=== PATIENT | female | born 1945 | race Caucasian/White ===

== ENCOUNTER 2016-08-13 16:56 | Emergency (ER) | payer BC, MEDICARE ==
[~2016-08-13] VITALS: Ht 160 cm; Wt 113.0 kg
[~2016-08-13 16:56] MED LIST: ALPR0.5T PO; ASPI-727 PO; ATOR40TA21 PO; CLOP75TA4 PO; IND20 PO; LOSA100T47 PO; LYR75 PO; MECL-77 PO; METF500T4 PO; MOEX15TA PO; TRAM50TA2 PO; TRIA1CAP70 PO
[2016-08-13 16:57] VITALS: Ht 160 cm; Wt 113.0 kg
[2016-08-13] MEDS ORDERED: ALPR0.5T6 PO (18:18)
[2016-08-13] MEDS ORDERED: HYDR-3672 PO (18:18)
[2016-08-13] MEDS ORDERED: ASPI-664 PO (18:19)
[2016-08-13] MEDS ORDERED: ATOR40TA68 PO (18:19)
[2016-08-13] MEDS ORDERED: MECL-77 PO (18:20)
[2016-08-13] MEDS ORDERED: CLOP75TA4 PO (18:20)
[2016-08-13] MEDS ORDERED: METF500T4 PO (18:21)
[2016-08-13 18:22] LABS: ADD SCAN DIFF NO
[2016-08-13] MEDS ORDERED: PROP20TA4 PO (18:22)
[2016-08-13] MEDS ORDERED: SERT-165 PO (18:23)
[2016-08-13] MEDS ORDERED: MAXZ25 PO (18:23)
[2016-08-13] MEDS ORDERED: CELE200C PO (18:24)
[2016-08-13 18:25] LABS: HEMOGLOBIN 12.3 g/dl (12.0-16.0)
[2016-08-13] MEDS ORDERED: AMLO5TAB4 PO (18:25)
[2016-08-13 18:31] LABS: HEMATOCRIT 36.2 % (37.0-47.0); MEAN CORPUSCULAR HEMOGLOBIN 28.7 pg (29.0-33.0); MEAN CORPUSCULAR VOLUME 84.4 fl (82.0-101.0); MEAN PLATELET VOLUME 11.6 fl (7.4-10.4); PLATELET COUNT 260 10^3/UL (140-415); RED BLOOD COUNT 4.29 10^6/ul (4.20-5.40); RED CELL DISTRIBUTION WIDTH 12.8 % (11.5-14.5); WHITE BLOOD COUNT 7.6 10^3/ul (4.8-10.8)
--- NOTE | 2016-08-13 18:33 | RADRPT ---
PROCEDURE: Chest x-ray CLINICAL INDICATION: Chest pain TECHNIQUE: Chest single view COMPARISON: None FINDINGS: The heart is normal in size. The pulmonary vessels are normal in caliber. The lungs are clear. Th e costophrenic angles are sharp. The visualized bony thorax is unremarkable. IMPRESSION: No acute cardiopulmonary disease. RPTAT: HH .Bruce Blunt MD, Date Time Electronically viewed and signed by .Bruce Blunt MD, MD on 08/13/2016 18:33 .W/
[2016-08-13 18:53] LABS: ALANINE AMINOTRANSFERASE 32 IU/L (13-69); ALBUMIN 4.9 g/dl (3.3-4.9); ALBUMIN/GLOBULIN RATIO 1.58; ALKALINE PHOSPHATASE 98 IU/L (42-121); ANION GAP 14 (8-16); ASPARTATE AMINO TRANSFERASE 24 IU/L (15-46); BILIRUBIN,INDIRECT 0.2 mg/dl (0-1.1); BILIRUBIN,TOTAL 0.2 mg/dl (0.2-1.3); BLOOD UREA NITROGEN 28 mg/dl (7-20); CARBON DIOXIDE 31 mmol/L (21-31); CHLORIDE 100 mmol/L (97-110); CREATININE 1.27 mg/dl (0.44-1.00); GLUCOSE 112 mg/dl (70-220); POTASSIUM 3.8 mmol/L (3.5-5.1); SODIUM 141 mmol/L (135-144)
[2016-08-13 19:04] LABS: B-TYPE NATRIURETIC PEPTIDE 294 PG/ML (0-125)
[2016-08-13 19:15] LABS: TROPONIN-I < 0.012 ng/ml (0.00-0.12)
[2016-08-13 19:34] LABS: EOSINOPHILS # 0.1 10^3/ul (0.0-0.5); LYMPHOCYTES # 2.4 10^3/ul (0.8-2.9); MONOCYTE # 0.1 10^3/ul (0.3-0.9); NEUTROPHIL # 4.7 10^3/ul (1.6-7.5)
--- NOTE | 2016-08-13 19:53 | ERA ---
ER Documentation Chief Complaint Date/Time DATE: 08/13/16 TIME: 19:48 Chief Complaint LEFT SHOULDER PAIin SINCE YESTERDAY DENIES INJURY HPI This is a 70-year-old female who is complaining of left shoulder pain since yesterday off and on. The son is here and says that she lives with him and he has to pull her by her arms in order to get her out of bed or to roll her over in bed. She said that she has been gradually getting more weak and having very difficult time ambulating with several near falls. He says he has seen doctors and no one knows why she is so weak. The patient says her left shoulder hurts when she moves it sometimes. The son brought her here because she was walking to the bathroom and complained of left shoulder pain she was grossly short of breath. Symptoms lasted for about 5 minutes and went away. ROS All systems reviewed and are negative except as per history of present illness. Medications Home Meds Reported Medications Amlodipine Besylate* (Norvasc*) 5 Mg Tablet, 5 MG PO DAILY, TAB 08/13/16 Celecoxib* (Celebrex*) 200 Mg Capsule, 200 MG PO DAILY, CAP 08/13/16 Sertraline Hcl* (Sertraline Hcl*) 100 Mg Tablet, 100 MG PO DAILY, #30 TAB 08/13/16 Triamterene/Hctz* (Maxzide (37.5-25)*) 1 Each Tablet, 1 EACH PO DAILY, #30 TAB 08/13/16 Propranolol Hcl* (Propranolol Hcl*) 20 Mg Tablet, 20 MG PO BID, TAB 08/13/16 Metformin Hcl* (Metformin Hcl*) 500 Mg Tablet, 500 MG PO WITH BREAKFAST DINNE, # 60 TAB 08/13/16 Meclizine Hcl* (Meclizine Hcl*) 25 Mg Tablet, 25 MG PO BID Y for DIZZINESS, TAB 08/13/16 Clopidogrel Bisulfate* (Clopidogrel Bisulfate*) 75 Mg Tablet, 75 MG PO DAILY, # 30 TAB 08/13/16 Atorvastatin* (Atorvastatin*) 40 Mg Tablet, 40 MG PO QHS, #30 TAB 08/13/16 Aspirin* (Aspirin* EC) 81 Mg Tablet.dr, 81 MG PO DAILY, TAB 08/13/16 Alprazolam* (Alprazolam*) 0.5 Mg Tablet, 0.5 MG PO BID Y for ANXIETY, TAB 08/13/16 Hydralazine Hcl* (Hydralazine Hcl*) 50 Mg Tab, 50 MG PO TID, #90 TAB 08/13/16 Discontinued Reported Medications Pregabalin* (Lyrica*) 75 Mg Capsule, PO DAILY 05/08/12 Meclizine Hcl* (Meclizine Hcl*) 25 Mg Tablet, PO Q8 05/08/12 Tramadol HCl (Tramadol HCl) 50 Mg Tablet, PO BID 05/08/12 Atorvastatin (Lipitor) 40 Mg Tablet, 40 MG PO DAILY 04/08/12 Clopidogrel Bisulfate* (Clopidogrel Bisulfate*) 75 Mg Tablet, 75 MG PO DAILY 04/08/12 Alprazolam* (Xanax*) 0.5 Mg Tab, 0.5 MG PO BID 04/08/12 Triamterene/Hydrochlorothiazid (Triamterene-Hctz 37.5-25 Mg Cp) 1 Cap Capsule, 1 CAP PO DAILY 04/08/12 Propranolol Hcl* (Inderal*) 20 Mg Tab, 20 MG PO BID 04/08/12 Aspirin (Adult Aspirin) 81 Mg Tab.chew, 81 MG PO DAILY 04/08/12 Metformin Hcl* (Metformin Hcl*) 500 Mg Tablet, 500 MG PO DAILY 04/08/12 Moexipril Hcl (Moexipril Hcl) 15 Mg Tablet, 15 MG PO DAILY 04/08/12 Losartan Potassium* (Cozaar*) 100 Mg Tablet, 100 MG PO DAILY 04/08/12 Allergies Allergies: Coded Allergies: bupivacaine (Verified Allergy, Unknown, 08/13/16) triamcinolone (Verified Allergy, Unknown, 08/13/16) PMhx/Soc History of Surgery: Yes (THYROID) Anesthesia Reaction: No Hx Neurological Disorder: Yes (dizziness) Hx Respiratory Disorders: No Hx Cardiac Disorders: Yes (HTN) Hx Psychiatric Problems: No Hx Miscellaneous Medical Probl: Yes (HEART STENT, DM, HIGH CHOLESTEROL) Hx Alcohol Use: No Hx Substance Use: No Hx Tobacco Use: No Smoking Status: Never smoker FmHx Family History: No coronary disease Physical Exam Vitals Vital Signs Date Time Temp Pulse Resp B/P Pulse Ox O2 Delivery O2 Flow Rate FiO2 08/13/16 18:47 98.1 62 20 151/67 100 Room Air 08/13/16 16:57 97.9 98 18 193/86 98 Physical Exam Const: Well-developed, well-nourished, ill-appearing Head: Atraumatic, normocephalic Eyes: Normal Conjunctiva, PERRLA, EOMI, normal sclera, no nystagmus ENT: Normal External Ears, Nose and Mouth, moist mucus membranes. Neck: Full range of motion. No meningismus, no lymphadenopathy. Resp: Clear to auscultation bilaterally, no wheezing, rhonchi, rales Cardio: Regular rate and rhythm, no murmurs, S1 S2 present Abd: Soft, non tender x 4, non distended. Normal bowel sounds, no guarding or rebound, no pulsitile abdominal masses or bruits Skin: No petechiae or rashes, no ecchymosis , no maculopapular rash Back: No midline or flank tenderness Ext: No cyanosis, or edema, FROM x 4, normal inspection, neurovascularly intact x 4, no pain in the left shoulder with palpation and no pain with range of motion active or passive Neur: Awake and alert, STR 5/5 x 4, sensation intact x 4, no focal findings, cerebellum intact, very slow gait is difficult time ambulating without assistance Psych: Normal Mood and Affect Result Diagram: 08/13/16 1805 08/13/16 180 Results 24 hrs Laboratory Tests Test 08/13/16 18:05 White Blood Count 7.610^3/ul Red Blood Count 4.2910^6/ul Hemoglobin 12.3g/dl Hematocrit 36.2% Mean Corpuscular Volume 84.4fl Mean Corpuscular Hemoglobin 28.7pg Mean Corpuscular Hemoglobin Concent 34.0g/dl Red Cell Distribution Width 12.8% Platelet Count 02373^3/UL Mean Platelet Volume 11.6fl Neutrophils % 62.0% Band Neutrophils % 4.0% Lymphocytes % 32.0% Monocytes % 1.0% Eosinophils % 1.0% Neutrophils # 4.710^3/ul Lymphocytes # 2.410^3/ul Monocytes # 0.110^3/ul Eosinophils # 0.110^3/ul Sodium Level 141mmol/L Potassium Level 3.8mmol/L Chloride Level 100mmol/L Carbon Dioxide Level 31mmol/L Anion Gap 14 Blood Urea Nitrogen 28mg/dl Creatinine 1.27mg/dl Glucose Level 112mg/dl Calcium Level 10.0mg/dl Total Bilirubin 0.2mg/dl Direct Bilirubin 0.00mg/dl Indirect Bilirubin 0.2mg/dl Aspartate Amino Transf (AST/SGOT) 24IU/L Alanine Aminotransferase (ALT/SGPT) 32IU/L Alkaline Phosphatase 98IU/L Troponin I < 0.012ng/ml B-Type Natriuretic Peptide 294PG/ML Total Protein 8.0g/dl Albumin 4.9g/dl Globulin 3.10g/dl Albumin/Globulin Ratio 1.58 Procedures/MDM PROCEDURE: Chest x-ray CLINICAL INDICATION: Chest pain TECHNIQUE: Chest single view COMPARISON: None FINDINGS: The heart is normal in size. The pulmonary vessels are normal in caliber. The lungs are clear. The costophrenic angles are sharp. The visualized bony thorax is unremarkable. IMPRESSION: No acute cardiopulmonary disease. RPTAT: HH .Bruce Blunt MD, MD Date Time Electronically viewed and signed by .Bruce Blunt MD, on 08/13/2016 18:33 .W/ CC: MIRTA SALEH DO Patient is a negative cardiac workup which could be the cause of her left shoulder pain and shortness of breath. The shoulder pain could simply be musculoskeletal as well. More pressing is the fact the patient is getting more weak as time goes on and she is now almost bed ridden and she is a very difficult time ambulating is a high fall risk. She likely needs placement in a rehab center and workup to see why she is so weak. EKG: Rate/Rhythm: Normal Sinus Rhythm,NL intervals QRS, ST, QT: NORMAL SC, QRS, QT] Impression: NORMAL EKG Departure Diagnosis: Primary Impression: Generalized weakness Additional Impressions: Left shoulder pain Qualified Code: M25.512 - Left shoulder pain, unspecified chronicity Dyspnea Qualified Code: R06.00 - Dyspnea, unspecified type Condition: Stable MIRTA SALEH DO Aug 13, 2016 19:53
[2016-08-13 20:55] VITALS: BP 159/92; PULSE 62; RESP 20; TEMP 98.1
== END 2016-08-13 20:55 | disposition left against medical advice (07) ==
LOC: E/R 16:56
DX: R53.1 Weakness (principal); R06.00 Dyspnea, unspecified; I10 Essential (primary) hypertension; E11.9 Type 2 diabetes mellitus without complications; Z79.01 Long term (current) use of anticoagulants; Z79.82 Long term (current) use of aspirin; Z79.84 Long term (current) use of oral hypoglycemic drugs; Z98.61 Coronary angioplasty status
CPT/HCPCS: 36415; 71010; 80053; 83880; 84484; 85025; 93005